=== PATIENT | female | born 1975 | race Caucasian/White ===

== ENCOUNTER 2018-08-06 02:44 | Emergency (ER) | payer SELFPAY ==
[2018-08-06] MEDS ORDERED: IOVERSOL 320 100 ML VIAL IVP ONE ×3 (02:45→05:50)
--- NOTE | 2018-08-06 03:22 | ED Physician Documentation ---
PD HPI NVD - Stated complaint Stated Complaint: VOMITING/CONSTIPATION - Chief complaint Chief Complaint: Abd Pain - History obtained from History obtained from: Patient - History of Present Illness Timing - onset: How many days ago (3) Timing - duration: Days (3) Timing - details: Abrupt onset (onset of abd distension, nausea/ vomiting, and feeling of constipation with rectal fullness. No BM for 3 days as well.), Still present Associated symptoms: Abdominal pain (diffuse and feeling distended.). No: Fever, Chest pain, Hematemesis, Melena, Near syncope / syncope, Loss of appetite Contributing factors: Other (crohns disease). No: Sick contact, Bad food Improved by: Position Worsened by: Position, Palpation Similar symptoms before: Diagnosis (crohns disease with inflammation) Recently seen: Not recently seen (She states [place]. She was working off prior prescription but had not seen a primary care since April. She still has her usual pain medicines at home from the pain clinic and will be seeing a different pain clinic next month. She has not seen her manager rehab Dr. Smith in [place] for 3 years.) Review of Systems Constitutional: reports: Myalgias, Fatigue. denies: Fever, Chills Nose: denies: Rhinorrhea / runny nose, Congestion Throat: denies: Sore throat Respiratory: denies: Cough GI: reports: Abdominal Pain, Nausea, Vomiting, Constipation. 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: None : None HEENT: None Psych: None Musculoskeletal: None Derm: None - Past Surgical History Past Surgical History: Yes General: Bowel surgery, Hiatal hernia repair - Present Medications Home Medications: Ambulatory Orders Medication Instructions Recorded Confirmed Docusate Sodium 100 mg PO DAILY #30 capsule 08/06/18 Hydrocortisone Acetate [Anucort-Hc] 25 mg RC DAILY #5 supp.rect 08/06/18 Promethazine [Phenergan] 25 mg PO Q6H PRN #20 tab 08/06/18 dexAMETHasone [Decadron] 4 mg PO DAILY #5 tablet 08/06/18 - Allergies Allergies/Adverse Reactions: Allergies Allergy/AdvReac Type Severity Reaction Status Date / Time acetaminophen [From Vicodin] Allergy Rash Verified 08/06/18 02:52 codeine Allergy Rash Verified 08/06/18 02:52 hydrocodone [From Vicodin] Allergy Rash Verified 08/06/18 02:52 Penicillins Allergy Rash Verified 08/06/18 02:52 - Social History Does the pt smoke?: Yes Smoking Status: Light tobacco smoker Does the pt drink ETOH?: No Does the pt have substance abuse?: No Substance Use and Type: Prescription Pills - Immunizations Immunizations are current?: Yes - POLST Patient has POLST: No PD ED PE NORMAL - Vitals Vital signs reviewed: Yes - General General: Alert and oriented X 3, Well developed/nourished, Other (appears in pain) - HEENT HEENT: Pharynx benign - Neck Neck: Supple, no meningeal sign, No adenopathy - Cardiac Cardiac: RRR, No murmur - Respiratory Respiratory: Clear bilaterally - Abdomen Abdomen: Soft, No organomegaly, Other (distended with increased bowel sounds, and general tenderness. ) - Rectal Rectal: Deferred - Back Back: No CVA TTP - Derm Derm: Normal color, No rash Results - Vitals Vitals: Vital Signs - 24 hr 08/06/18 08/06/18 08/06/18 02:47 04:42 06:20 Temperature 37.2 C 36.8 C 36.8 C Heart Rate 111 H 84 88 Respiratory 18 16 16 Rate Blood Pressure 163/95 H 159/102 H 155/97 H O2 Saturation 98 98 98 Oxygen O2 Source Room air - Labs Labs: Laboratory Tests 08/06/18 08/06/18 08/06/18 04:50 04:50 04:50 WBC 8.2 RBC 4.36 Hgb 12.3 Hct 36.1 L MCV 82.8 MCH 28.1 MCHC 33.9 RDW 13.9 Plt Count 278 MPV 8.2 Neut # (Auto) 5.0 Lymph # (Auto) 2.2 [place] # (Auto) 0.6 Eos # (Auto) 0.2 Baso # (Auto) 0.1 Absolute Nucleated RBC 0.00 Nucleated RBC % 0.0 ESR 7 Sodium 137 Potassium 3.1 L Chloride 102 Carbon Dioxide 25 Anion Gap 10.0 BUN 14 Creatinine 0.6 Estimated GFR (MDRD) 110 Glucose 115 H Calcium 8.4 L Magnesium 1.8 Total Bilirubin 0.5 AST 16 ALT 12 Alkaline Phosphatase 57 Total Protein 6.5 L Albumin 3.3 Globulin 3.2 Albumin/Globulin Ratio 1.0 Lipase 30 - Rads (name of study) abd/pelvic CT Radiology: Prelim report reviewed (10 cm pelvic mass pedunculated from uterus c/w leiomyoma (fibroid). No obstruction. ), See rad report PD MEDICAL DECISION MAKING - ED course Complexity details: reviewed results (no obstruction, no perforations. Large pelvic mass c/w fibroid it may be blocking stool output and causing some of the distension. ), re-evaluated patient, considered differential (consider constipation with distension, Crohns flare with pseudo obstruction, true obstruction or adhesions, among other diagnoses. ), d/w patient Departure - Departure Condition: Stable Record reviewed to determine appropriate education?: Yes Instructions: Abdominal Pain Follow-Up: [facility] [Provider Group] Palomo Smith MD [Physician No Access] - Prescriptions: dexAMETHasone [Decadron] 4 mg PO DAILY #5 tablet Docusate Sodium 100 mg PO DAILY #30 capsule Hydrocortisone Acetate [Anucort-Hc] 25 mg RC DAILY #5 supp.rect Promethazine [Phenergan] 25 mg PO Q6H PRN #20 tab PRN Reason: Nausea / Vomiting Comments: It does sound likely you have a flareup of your Crohn's and so use the Decadron oral steroid for the next 10 days. You can use the steroid suppository daily for 5 days to decrease inflammation at the rectum. Use a daily stool softener and stay well-hydrated. Continue usual pain medicines at home. Add promethazine for nausea as needed. Follow-up with your manager rehab in [place], call Tuesday for an appointment to follow-up on the current symptoms. The CT scan showed a large fibroid about the size of a softball and that may be contributing to some pressure within the pelvis and even impeding some of the stool. Follow-up with the gynecology office regarding what to do about this. Follow-up with the pain clinic as planned for ongoing treatment of your chronic pains.
[2018-08-06] MEDS ORDERED: SODIUM CHLORIDE 0.9% 1,000 ML IV ONE (04:02)
[2018-08-06] MEDS ORDERED: HYDROmorphone 1 MG/ML CARPUJECT IVP STA ×2 (04:02→05:56)
[2018-08-06] MEDS ORDERED: KETOROLAC 15 MG/ML VIAL IVP STA (04:02)
[2018-08-06] MEDS ORDERED: DEXAMETHASONE 10 MG/ML VIAL IVP STA (04:02)
[2018-08-06] MEDS ORDERED: ONDANSETRON 4 MG/2 ML VIAL IVP STA (04:02)
[2018-08-06 04:58] LABS: BASOPHILS # (AUTO) 0.1 10^3/uL (0.0-0.1); BASOPHILS % (AUTO) 0.9 %; EOSINOPHILS # (AUTO) 0.2 10^3/uL (0.0-0.7); EOSINOPHILS % (AUTO) 2.8 %; HGB - HEMOGLOBIN 12.3 g/dL (12.0-16.0); LYMPHOCYTES # (AUTO) 2.2 10^3/uL (1.5-3.5); LYMPHOCYTES % (AUTO) 26.9 %; MEAN CORPUSCULAR HEMOGLOBIN 28.1 pg (27.0-31.0); MEAN CORPUSCULAR HGB CONC 33.9 g/dL (32.0-36.0); MEAN CORPUSCULAR VOLUME 82.8 fL (81.0-99.0); MEAN PLATELET VOLUME 8.2 fL (7.9-10.8); MONOCYTES # (AUTO) 0.6 10^3/uL (0.0-1.0); MONOCYTES % (AUTO) 7.9 %; NEUTROPHILS % (AUTO) 61.5 %; PLT - PLATELET COUNT 278 10^3/uL (130-450); RED BLOOD COUNT 4.36 10^6/uL (4.20-5.40); RED CELL DISTRIBUTION WIDTH 13.9 % (12.0-15.0); WHITE BLOOD COUNT 8.2 x10^3/uL (4.8-10.8)
[2018-08-06 05:09] LABS: ALBUMIN 3.3 g/dL (3.2-5.5); BILIRUBIN,TOTAL 0.5 mg/dL (0.2-1.0); CALCIUM 8.4 mg/dL (8.5-10.3); CREATININE 0.6 mg/dL (0.4-1.0); MAGNESIUM 1.8 mg/dL (1.7-2.8); TOTAL PROTEIN 6.5 g/dL (6.7-8.2)
--- NOTE | 2018-08-06 06:00 | CT Report ---
Reason: abd distension and vomiting; Crohns. Procedure Date: 08/06/2018 Accession Number: [id number] / [id number] Procedure: CT - Abdomen/Pelvis W CPT Code: FULL RESULT: EXAM: CT ABDOMEN AND PELVIS EXAM DATE: 08/06/2018 05:34 AM. CLINICAL HISTORY: Abd distension and vomiting; Crohns. COMPARISONS: None. TECHNIQUE: Routine helical CT imaging was performed through the abdomen and pelvis. IV contrast: 85 ML OPTIRAY 320. Enteric contrast: No. Reconstructions: Coronal and sagittal. In accordance with CT protocol optimization, one or more of the following dose reduction techniques were utilized for this exam: automated exposure control, adjustment of mA and/or KV based on patient size, or use of iterative reconstructive technique. FINDINGS: Lung Bases: Unremarkable. Liver: Normal. No masses. Gallbladder/Bile Ducts: Unremarkable. Spleen: Normal. Pancreas: Normal. Adrenal Glands: Normal. Kidneys: Normal. No masses or hydronephrosis. Peritoneal Cavity/Bowel: Normal. No free fluid, free air or adenopathy. No masses or acute inflammatory process. Surgical clips adjacent to the cecum, likely from previous appendectomy. Pelvic Organs: 10.4 x 9 x 8 cm mass in the anterior pelvis, which appears to arise from the anterior uterus, likely representing a pedunculated subserosal leiomyoma. Vasculature: No aneurysms or other significant abnormality. Bones: No significant abnormality. Other: None. IMPRESSION: New large anterior midline pelvic mass, likely representing a pedunculated subserosal leiomyoma. No other evident etiology for patient's distention and nausea. RADIA
[2018-08-06 06:34] VITALS: BP 155/97
== END 2018-08-06 07:05 | disposition home or self-care (01) ==
LOC: ED 02:44
DX: K50.90 Crohn's disease, unspecified, without complications (principal); D25.9 Leiomyoma of uterus, unspecified; F17.200 Nicotine dependence, unspecified, uncomplicated
CPT/HCPCS: 36415; 74177; 80053; 83690; 83735; 85025; 85651; 96361; 96374; 96375; 96376; 99284; J1170; Q9967; 99283

== ENCOUNTER 2018-08-06 13:51 | Outpatient (CLI) | payer SELFPAY | END 2018-08-06 13:52 | disposition critical access hospital (66) | LOC: EMS 13:51 | PROVIDERS: ATTEND Surgery | DX: R10.9 Unspecified abdominal pain (principal); R11.0 Nausea | CPT/HCPCS: A0425; A0427 ==

== ENCOUNTER 2018-08-06 14:29 | Emergency (ER) | payer SELFPAY ==
[2018-08-06] MEDS ORDERED: ONDANSETRON 4 MG/2 ML VIAL IVP STA (15:36)
[2018-08-06] MEDS ORDERED: HYDROmorphone 1 MG/ML CARPUJECT IVP STA (15:36)
--- NOTE | 2018-08-06 16:01 | ED Physician Documentation ---
PD HPI ABD PAIN - Stated complaint Stated Complaint: ABD PX - Chief complaint Chief Complaint: Abd Pain - History obtained from History obtained from: Patient - History of Present Illness Timing - onset: How many days ago (several) Timing - duration: Days (several) Timing - details: Gradual onset Pain level max: 8 Pain level now: 8 Quality: Aching, Pain Location: All over / everywhere Radiation: No: Chest, , Lower back, Left flank, Left shoulder, Right flank, Right shoulder, Upper back Improved by: Other (nothing) Worsened by: Moving, Palpation Associated symptoms: Nausea, Vomiting, Constipation. 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 : None HEENT: None Psych: None Musculoskeletal: None Derm: None - Past Surgical History Past Surgical History: Yes General: Bowel surgery, Hiatal hernia repair - Present Medications Home Medications: Ambulatory Orders Medication Instructions Recorded Confirmed Docusate Sodium 100 mg PO DAILY #30 capsule 08/06/18 HYDROmorphone [Dilaudid] 2 - 4 mg PO Q6H PRN #20 tablet 08/06/18 Hydrocortisone Acetate [Anucort-Hc] 25 mg RC DAILY #5 supp.rect 08/06/18 Ondansetron Odt [Zofran] 4 mg TL Q6H PRN #20 tablet 08/06/18 Promethazine [Phenergan] 25 mg PO Q6H PRN #20 tab 08/06/18 dexAMETHasone [Decadron] 4 mg PO DAILY #5 tablet 08/06/18 - Allergies Allergies/Adverse Reactions: Allergies Allergy/AdvReac Type Severity Reaction Status Date / Time acetaminophen [From Vicodin] Allergy Rash Verified 08/06/18 02:52 codeine Allergy Rash Verified 08/06/18 02:52 hydrocodone [From Vicodin] Allergy Rash Verified 08/06/18 02:52 Penicillins Allergy Rash Verified 08/06/18 02:52 - Social History Does the pt smoke?: Yes Smoking Status: Current every day smoker Does the pt drink ETOH?: No Does the pt have substance abuse?: No - Immunizations Immunizations are current?: Yes - POLST Patient has POLST: No PD ED PE NORMAL - Vitals Vital signs reviewed: Yes - General General: Alert and oriented X 3, No acute distress, Well developed/nourished - HEENT HEENT: PERRL, Moist mucous membranes - Neck Neck: Supple, no meningeal sign - Cardiac Cardiac: RRR, Strong equal pulses - Respiratory Respiratory: No respiratory distress, Clear bilaterally - Abdomen Abdomen: Soft, Non tender, Non distended - Derm Derm: Warm and dry, No rash - Extremities Extremities: No calf tenderness / cord - Neuro Neuro: Alert and oriented X 3 - Psych Psych: Normal mood, Normal affect Results - Vitals Vitals: Vital Signs - 24 hr 08/06/18 08/06/18 08/06/18 14:33 15:48 17:37 Temperature 37.0 C Heart Rate 95 84 86 Respiratory 16 16 16 Rate Blood Pressure 149/102 H 146/81 H 138/78 H O2 Saturation 99 98 99 Oxygen O2 Source Room air PD MEDICAL DECISION MAKING - ED course Complexity details: reviewed old records, reviewed results, re-evaluated patient, considered differential, d/w patient, d/w family ED course: 42-year-old female with a history of Crohn's disease, being treated for Crohn's exacerbation this morning. She went home and had continued vomiting. States that Zofran works better for her. She was given Zofran in the emergency department. Tolerating p.o. without difficulty. Also given hydromorphone and Toradol. Pain well controlled. Will prescribe a small amount of hydromorphone for her for home. PDMP was reviewed. No recent prescriptions. She is on methadone at home as well. Patient counseled regarding signs and symptoms for which I believe and urgent re-evaluation would be necessary. Patient with good understanding of and agreement to plan and is comfortable going home at this time This document was made in part using voice recognition software. While efforts are made to proofread this document, sound alike and grammatical errors may occur. Departure - Departure Disposition: 01 Home, Self Care Clinical Impression: Exacerbation of Crohn's disease Qualifiers: Digestive disease complication type: without complication Qualified Code(s): K50.90 - Crohn's disease, unspecified, without complications Nausea & vomiting Qualifiers: Vomiting type: unspecified Vomiting Intractability: non-intractable Qualified Code(s): R11.2 - Nausea with vomiting, unspecified Fibroid uterus Qualifiers: Uterine leiomyoma location: unspecified location Qualified Code(s): D25.9 - Leiomyoma of uterus, unspecified Condition: Good Instructions: ED Abdominal Pain Unkn Cause Follow-Up: your,doctor in 1 week [Other] Prescriptions: HYDROmorphone [Dilaudid] 2 - 4 mg PO Q6H PRN #20 tablet PRN Reason: Abdominal Pain Ondansetron Odt [Zofran] 4 mg TL Q6H PRN #20 tablet PRN Reason: Nausea / Vomiting Comments: Take the medications as prescribed. Follow-up with your doctor for further care. You need to have the uterine growth that is likely a fibroid further assessed with your doctor. You may also want to discuss with your gastro enterologist restarting on Crohn's medication and/or a stricturoplasty for your strictures if they are amenable to this. Do not drink alcohol or drive while on narcotic pain medicine. Note that many narcotic pain relievers also contain tylenol/acetaminophen. Please ensure that your total dose of acetaminophen from all sources does not exceed 3 grams (3000mg) per day. You may constipated on this medication, take a stool softener such as "Colace" twice a day while you are on it. Also recommend a [id number] laxative such as senna or MiraLAX any day that you do not have a bowel movement. If you received narcotic pain medication in the emergency department, do not drive or operate machinery for the next 24 hours. Discharge Date/Time: 08/06/18 17:38
[2018-08-06] MEDS ORDERED: KETOROLAC 30 MG/ML VIAL IVP STA (16:32)
[2018-08-06] MEDS ORDERED: HYDROmorphone 2 MG TABLET PO STA (16:33)
[2018-08-06] MEDS ORDERED: ONDANSETRON ODT 4 MG Prepack 2 TL PRN (17:23)
[2018-08-06 17:38] VITALS: BP 138/78
== END 2018-08-06 17:38 | disposition home or self-care (01) ==
LOC: EDUNIT# → ED 14:29
DX: K50.90 Crohn's disease, unspecified, without complications (principal); D25.9 Leiomyoma of uterus, unspecified; F17.200 Nicotine dependence, unspecified, uncomplicated
CPT/HCPCS: 96374; 96375; 99283; A9270; J1170; 96361; 96376; 99284

== ENCOUNTER 2018-08-09 00:48 | Outpatient (CLI) | payer SELFPAY | END 2018-08-09 00:49 | disposition critical access hospital (66) | LOC: EMS 00:48 | PROVIDERS: ATTEND Surgery | DX: R10.9 Unspecified abdominal pain (principal); R11.2 Nausea with vomiting, unspecified; R19.7 Diarrhea, unspecified | CPT/HCPCS: A0425; A0429 ==

== ENCOUNTER 2018-08-09 01:21 | Emergency (ER) | payer SELFPAY ==
--- NOTE | 2018-08-09 01:23 | ED Physician Documentation ---
PD HPI ABD PAIN - Stated complaint Stated Complaint: ABD PAIN - History obtained from History obtained from: Patient, EMS - History of Present Illness Timing - onset: How many weeks ago (1) Timing - duration: Weeks (1) Timing - details: Gradual onset (had symptoms c/w Crohns flare but with distension and no BM several days ago. Seen here and had CT showing no obstruction. Has uterine mass. Made calls for appts 2 days ago with SALVAGE DETERMINER, and her GI. No appts yet, awaiting return calls. Having diarrheal movements the past 2 days, with mucous. Had increased pain overnight despite PO Dilaudid and Zofran.), Still present Quality: Cramping, Aching Location: Periumbilical, RLQ Radiation: No: Chest Associated symptoms: Nausea, Vomiting, Diarrhea. No: Fever, Constipation, Melena Similar symptoms before: Diagnosis (Crohns) Recently seen: Emergency Dept (3 days ago for similar) Review of Systems Constitutional: denies: Fever, Chills Nose: denies: Rhinorrhea / runny nose, Congestion Throat: denies: Sore throat Respiratory: denies: Cough GI: reports: Diarrhea. 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 : None HEENT: None Psych: None Musculoskeletal: None Derm: None - Past Surgical History Past Surgical History: Yes General: Bowel surgery, Hiatal hernia repair - Present Medications Home Medications: Ambulatory Orders Medication Instructions Recorded Confirmed Docusate Sodium 100 mg PO DAILY #30 capsule 08/06/18 Hydrocortisone Acetate [Anucort-Hc] 25 mg RC DAILY #5 supp.rect 08/06/18 Ondansetron Odt [Zofran] 4 mg TL Q6H PRN #20 tablet 08/06/18 Promethazine [Phenergan] 25 mg PO Q6H PRN #20 tab 08/06/18 dexAMETHasone [Decadron] 4 mg PO DAILY #5 tablet 08/06/18 HYDROmorphone [Dilaudid] 2 - 4 mg PO Q6H PRN #20 tablet 08/09/18 dexAMETHasone [Decadron] 4 mg PO DAILY #5 tablet 08/09/18 - Allergies Allergies/Adverse Reactions: Allergies Allergy/AdvReac Type Severity Reaction Status Date / Time acetaminophen [From Vicodin] Allergy Rash Verified 08/09/18 01:34 codeine Allergy Rash Verified 08/09/18 01:34 hydrocodone [From Vicodin] Allergy Rash Verified 08/09/18 01:34 Penicillins Allergy Rash Verified 08/09/18 01:34 - Social History Does the pt smoke?: Yes Smoking Status: Current every day smoker Does the pt drink ETOH?: No Does the pt have substance abuse?: No - Immunizations Immunizations are current?: Yes - POLST Patient has POLST: No PD ED PE NORMAL - Vitals Vital signs reviewed: Yes - General General: Alert and oriented X 3, No acute distress, Well developed/nourished - HEENT HEENT: Pharynx benign - Neck Neck: Supple, no meningeal sign, No adenopathy - Cardiac Cardiac: RRR, No murmur - Respiratory Respiratory: Clear bilaterally - Abdomen Abdomen: Normal bowel sounds, Soft, No organomegaly, Other (tender mid abdomen, with moderate distension but not tense. Bowel sounds diminished. No percussion tenderness. ) - Rectal Rectal: Deferred - Back Back: No CVA TTP - Derm Derm: Normal color, Warm and dry - Neuro Neuro: Alert and oriented X 3, No motor deficit, Normal speech Results - Vitals Vitals: Vital Signs - 24 hr 08/09/18 08/09/18 08/09/18 01:20 01:26 03:16 Temperature 36.7 C Heart Rate 85 86 81 Respiratory 15 15 16 Rate Blood Pressure 131/75 H 131/75 H 108/86 H O2 Saturation 99 100 98 08/09/18 08/09/18 05:00 05:49 Temperature Heart Rate 78 75 Respiratory 16 16 Rate Blood Pressure 136/84 H 128/77 O2 Saturation 99 100 Oxygen O2 Source Room air - Labs Labs: Laboratory Tests 08/09/18 08/09/18 08/09/18 02:00 02:00 02:00 WBC 11.8 H RBC 4.52 Hgb 12.3 Hct 37.3 MCV 82.7 MCH 27.3 MCHC 33.0 RDW 13.8 Plt Count 297 MPV 7.7 L Neut # (Auto) 6.1 Lymph # (Auto) 4.3 H Powell # (Auto) 0.9 Eos # (Auto) 0.3 Baso # (Auto) 0.1 Absolute Nucleated RBC 0.00 Nucleated RBC % 0.0 ESR 5 Sodium 139 Potassium 3.4 L Chloride 100 L Carbon Dioxide 28 Anion Gap 11.0 BUN 20 Creatinine 0.7 Estimated GFR (MDRD) 92 Glucose 112 H Calcium 8.9 Magnesium 1.7 Total Bilirubin 0.5 AST 14 ALT 13 Alkaline Phosphatase 53 Total Protein 6.3 L Albumin 3.4 Globulin 2.9 Albumin/Globulin Ratio 1.2 Lipase 34 PD MEDICAL DECISION MAKING - ED course Complexity details: re-evaluated patient (improved with IM meds. Labs good. I did not see rationale for repeating CT and patient is good with not getting imaging. ), considered differential, d/w patient Departure - Departure Disposition: 01 Home, Self Care Clinical Impression: Exacerbation of Crohn's disease Qualifiers: Digestive disease complication type: without complication Qualified Code(s): K50.90 - Crohn's disease, unspecified, without complications Nausea & vomiting Qualifiers: Vomiting type: unspecified Vomiting Intractability: non-intractable Qualified Code(s): R11.2 - Nausea with vomiting, unspecified Fibroid uterus Qualifiers: Uterine leiomyoma location: unspecified location Qualified Code(s): D25.9 - Leiomyoma of uterus, unspecified Condition: Stable Record reviewed to determine appropriate education?: Yes Instructions: ED Inflam Bowel Disease Crohn Prescriptions: dexAMETHasone [Decadron] 4 mg PO DAILY #5 tablet HYDROmorphone [Dilaudid] 2 - 4 mg PO Q6H PRN #20 tablet PRN Reason: Abdominal Pain Comments: Stay well-hydrated. Continue your ondansetron at home 1 to 2 tablets every 6 hours if needed for nausea and vomiting. Continue with your dexamethasone daily and I would extend it out another 5 days beyond the current prescription, hopef ully until you can follow-up with your primary care or GI. Continue your current medications and add the hydromorphone as needed. 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 Discharge Date/Time: 08/09/18 06:09
[2018-08-09] MEDS ORDERED: FAMOTIDINE 20 MG/2 ML VIAL IVP STA (01:48)
[2018-08-09] MEDS ORDERED: ONDANSETRON 4 MG/2 ML VIAL IVP STA (01:48)
[2018-08-09] MEDS ORDERED: HYDROmorphone 2 MG/ML VIAL IVP STA (01:48)
[2018-08-09] MEDS ORDERED: SODIUM CHLORIDE 0.9% 1,000 ML IV ONE (01:48)
[2018-08-09 02:13] LABS: BASOPHILS # (AUTO) 0.1 10^3/uL (0.0-0.1); BASOPHILS % (AUTO) 0.8 %; EOSINOPHILS # (AUTO) 0.3 10^3/uL (0.0-0.7); EOSINOPHILS % (AUTO) 2.5 %; HGB - HEMOGLOBIN 12.3 g/dL (12.0-16.0); LYMPHOCYTES # (AUTO) 4.3 10^3/uL (1.5-3.5); LYMPHOCYTES % (AUTO) 36.7 %; MEAN CORPUSCULAR HEMOGLOBIN 27.3 pg (27.0-31.0); MEAN CORPUSCULAR VOLUME 82.7 fL (81.0-99.0); MEAN PLATELET VOLUME 7.7 fL (7.9-10.8); MONOCYTES # (AUTO) 0.9 10^3/uL (0.0-1.0); MONOCYTES % (AUTO) 7.9 %; NEUTROPHILS # (AUTO) 6.1 10^3/uL (1.5-6.6); NEUTROPHILS % (AUTO) 52.1 %; PLT - PLATELET COUNT 297 10^3/uL (130-450); RED BLOOD COUNT 4.52 10^6/uL (4.20-5.40); RED CELL DISTRIBUTION WIDTH 13.8 % (12.0-15.0); WHITE BLOOD COUNT 11.8 x10^3/uL (4.8-10.8)
[2018-08-09 02:24] LABS: ALBUMIN 3.4 g/dL (3.2-5.5); ALBUMIN/GLOBULIN RATIO 1.2 (1.0-2.2); BILIRUBIN,TOTAL 0.5 mg/dL (0.2-1.0); CALCIUM 8.9 mg/dL (8.5-10.3); CREATININE 0.7 mg/dL (0.4-1.0); MAGNESIUM 1.7 mg/dL (1.7-2.8); TOTAL PROTEIN 6.3 g/dL (6.7-8.2)
[2018-08-09] MEDS ORDERED: DIPHENOX/ATROPINE 2.5/0.025 MG TABLET PO STA (05:36)
[2018-08-09 05:51] VITALS: BP 128/77
== END 2018-08-09 06:09 | disposition home or self-care (01) ==
LOC: EDUNIT# → ED 01:21
DX: K50.90 Crohn's disease, unspecified, without complications (principal); R11.2 Nausea with vomiting, unspecified; D25.9 Leiomyoma of uterus, unspecified; F17.200 Nicotine dependence, unspecified, uncomplicated
CPT/HCPCS: 36415; 80053; 83690; 83735; 85025; 85651; 96374; 99283; 99284; A9270; J1170

== ENCOUNTER 2018-10-05 00:02 | Outpatient (CLI) | payer SELFPAY | END 2018-10-05 00:03 | disposition critical access hospital (66) | LOC: EMS 00:02 | PROVIDERS: ATTEND Surgery | DX: R00.0 Tachycardia, unspecified (principal); R11.0 Nausea | CPT/HCPCS: A0425; A0429 ==

== ENCOUNTER 2018-10-05 00:57 | Emergency (ER) | payer SELFPAY ==
--- NOTE | 2018-10-05 01:42 | ED Physician Documentation ---
PD HPI NVD - Stated complaint Stated Complaint: ABD PAIN - Chief complaint Chief Complaint: Abd Pain - History obtained from History obtained from: Patient - History of Present Illness Timing - onset: How many days ago (3) Timing - duration: Days (3) Timing - details: Gradual onset, Still present Associated symptoms: Abdominal pain Contributing factors: Other (narcotic withdrawal) Improved by: Meds Similar symptoms before: Diagnosis (chrons disease and narcotic withdrawal) Recently seen: Emergency Dept (2 months ago.) - Additonal information Additional information: 43-year-old female with a history of inflammatory scarring Crohn's disease has been on methadone for years and her prescriber has gone missing in action and she has not been able to secure a new prescriber. She has run out of methadone about 3 days ago and she has now developed nausea vomiting and diarrhea with abdominal pain similar to what she has when she has a flare of her Crohn's disease. 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 : None HEENT: None Psych: None Musculoskeletal: None Derm: None Other Past Medical History: PCOS, cervical cancer, - Past Surgical History Past Surgical History: Yes General: Appendectomy, Bowel surgery, Hiatal hernia repair - Present Medications Home Medications: Ambulatory Orders Medication Instructions Recorded Confirmed Docusate Sodium 100 mg PO DAILY #30 capsule 08/06/18 Hydrocortisone Acetate [Anucort-Hc] 25 mg RC DAILY #5 supp.rect 08/06/18 Ondansetron Odt [Zofran] 4 mg TL Q6H PRN #20 tablet 08/06/18 Promethazine [Phenergan] 25 mg PO Q6H PRN #20 tab 08/06/18 dexAMETHasone [Decadron] 4 mg PO DAILY #5 tablet 08/06/18 HYDROmorphone [Dilaudid] 2 - 4 mg PO Q6H PRN #20 tablet 08/09/18 dexAMETHasone [Decadron] 4 mg PO DAILY #5 tablet 08/09/18 oxyCODONE [Roxicodone] 10 mg PO Q6H PRN #30 tablet 10/05/18 - Allergies Allergies/Adverse Reactions: Allergies Allergy/AdvReac Type Severity Reaction Status Date / Time acetaminophen [From Vicodin] Allergy Rash Verified 08/09/18 01:34 codeine Allergy Rash Verified 08/09/18 01:34 hydrocodone [From Vicodin] Allergy Rash Verified 08/09/18 01:34 Penicillins Allergy Rash Verified 08/09/18 01:34 - Social History Does the pt smoke?: Yes Smoking Status: Current every day smoker Does the pt drink ETOH?: No Does the pt have substance abuse?: No Substance Use and Type: Marijuana - Immunizations Immunizations are current?: Yes - POLST Patient has POLST: No PD ED PE NORMAL - Vitals Vital signs reviewed: Yes (hypertensive ) - General General: Alert and oriented X 3, Well developed/nourished, Other (appears in pain and worn out) - HEENT HEENT: Atraumatic, PERRL, EOMI - Neck Neck: Supple, no meningeal sign, No bony TTP - Cardiac Cardiac: RRR, No murmur - Respiratory Respiratory: No respiratory distress, Clear bilaterally - Abdomen Abdomen: Soft, Other (mild suprapubic tenderness bilat worse on the right. ) - Back Back: No CVA TTP, No spinal TTP - Derm Derm: Normal color, Warm and dry, No rash - Extremities Extremities: No deformity, No edema, No calf tenderness / cord - Neuro Neuro: Alert and oriented X 3, probation and patrol agent 2-12 intact, No motor deficit, No sensory deficit, Normal speech Eye Opening: Spontaneous Motor: Obeys Commands Verbal: Oriented GCS Score: 15 - Psych Psych: Normal mood, Normal affect Results - Vitals Vitals: Vital Signs - 24 hr 10/05/18 01:00 Temperature 37.2 C Heart Rate 96 Respiratory 20 Rate Blood Pressure 151/92 H O2 Saturation 100 Oxygen O2 Source Room air - Labs Labs: Laboratory Tests 10/05/18 10/05/18 02:35 02:35 WBC 10.5 RBC 5.12 Hgb 13.6 Hct 41.8 MCV 81.6 MCH 26.6 L MCHC 32.5 RDW 13.4 Plt Count 329 MPV 10.2 Neut # (Auto) 6.4 Lymph # (Auto) 2.9 [place] # (Auto) 0.9 Eos # (Auto) 0.1 Baso # (Auto) 0.1 Absolute Nucleated RBC 0.00 Nucleated RBC % 0.0 Sodium 144 Potassium 3.4 L Chloride 106 Carbon Dioxide 27 Anion Gap 11.0 BUN 9 Creatinine 0.7 Estimated GFR (MDRD) 91 Glucose 94 Calcium 9.7 Total Bilirubin 0.6 AST 47 H ALT 26 Alkaline Phosphatase 65 Total Protein 7.8 Albumin 4.2 Globulin 3.6 Albumin/Globulin Ratio 1.2 Lipase 20 L Procedures - IVC sono (time) 0200 Bedside IVC sono: IVC measures (cm) (1.2), Dehydration (est 1 liter deficit) PD MEDICAL DECISION MAKING - ED course Complexity details: reviewed old records, reviewed results, re-evaluated patient, considered differential, d/w patient ED course: 43-year-old Female with history of Crohn's disease and chronic pain who is on pain management has lost her prescriber and she has not been able to secure a new prescriber. She is now in the early stages of withdrawal from methadone and here in the emergency department she is given a liter of saline some Zofran and some Dilaudid as well as 20 mEq of potassium chloride and 20 mg of methadone orally. We will provide her with a short course of oxycodone there will likely be inadequate for complete coverage. She will need to find her prescriber today. Departure - Departure Disposition: 01 Home, Self Care Clinical Impression: Narcotic withdrawal Condition: Stable Instructions: ED Withdrawal Narcotic Follow-Up: [facility] [Provider Group] Prescriptions: oxyCODONE [Roxicodone] 10 mg PO Q6H PRN #30 tablet PRN Reason: Pain Comments: You will need to find a prescriber today
[2018-10-05] MEDS ORDERED: ONDANSETRON 4 MG/2 ML VIAL IVP STA (02:06)
[2018-10-05] MEDS ORDERED: SODIUM CHLORIDE 0.9% 1,000 ML IV ONE (02:06)
[2018-10-05] MEDS ORDERED: HYDROmorphone 1 MG/ML CARPUJECT IVP STA (02:06)
[2018-10-05 02:45] LABS: BASOPHILS # (AUTO) 0.1 10^3/uL (0.0-0.1); BASOPHILS % (AUTO) 0.8 %; EOSINOPHILS # (AUTO) 0.1 10^3/uL (0.0-0.7); HGB - HEMOGLOBIN 13.6 g/dL (12.0-16.0); LYMPHOCYTES # (AUTO) 2.9 10^3/uL (1.5-3.5); LYMPHOCYTES % (AUTO) 28.1 %; MEAN CORPUSCULAR HEMOGLOBIN 26.6 pg (27.0-31.0); MEAN CORPUSCULAR HGB CONC 32.5 g/dL (32.0-36.0); MEAN CORPUSCULAR VOLUME 81.6 fL (81.0-99.0); MEAN PLATELET VOLUME 10.2 fL (7.9-10.8); MONOCYTES # (AUTO) 0.9 10^3/uL (0.0-1.0); MONOCYTES % (AUTO) 8.5 %; NEUTROPHILS # (AUTO) 6.4 10^3/uL (1.5-6.6); NEUTROPHILS % (AUTO) 61.3 %; PLT - PLATELET COUNT 329 10^3/uL (130-450); RED BLOOD COUNT 5.12 10^6/uL (4.20-5.40); RED CELL DISTRIBUTION WIDTH 13.4 % (12.0-15.0); WHITE BLOOD COUNT 10.5 x10^3/uL (4.8-10.8)
[2018-10-05 02:57] LABS: ALBUMIN 4.2 g/dL (3.2-5.5); ALBUMIN/GLOBULIN RATIO 1.2 (1.0-2.2); BILIRUBIN,TOTAL 0.6 mg/dL (0.2-1.0); CALCIUM 9.7 mg/dL (8.5-10.3); CREATININE 0.7 mg/dL (0.4-1.0); TOTAL PROTEIN 7.8 g/dL (6.7-8.2)
[2018-10-05] MEDS ORDERED: METHADONE 5 MG TABLET PO STA (02:58)
[2018-10-05] MEDS ORDERED: POTASSIUM CHLORIDE 20 MEQ TABLET PO STA (03:01)
[2018-10-05 03:14] VITALS: BP 158/88
== END 2018-10-05 03:16 | disposition home or self-care (01) ==
LOC: EDUNIT# → ED 00:57
DX: F11.23 Opioid dependence with withdrawal (principal); T40.2X6A Underdosing of other opioids, initial encounter; Z91.138 Patient's unintentional underdosing of medication regimen for other reason; K50.90 Crohn's disease, unspecified, without complications; E86.0 Dehydration; F17.200 Nicotine dependence, unspecified, uncomplicated
CPT/HCPCS: 36415; 80053; 83690; 85025; 96374; 99283; 99284; A9270; J1170

== ENCOUNTER 2021-03-05 06:40 | Emergency (ER) | payer SELFPAY ==
[2021-03-05] MEDS ORDERED: KETOROLAC 15 MG/ML VIAL IVP STA (06:43)
[2021-03-05] MEDS ORDERED: ONDANSETRON 4 MG/2 ML VIAL IVP STA (06:43)
[2021-03-05] MEDS ORDERED: SODIUM CHLORIDE 0.9% 1,000 ML IV STA ×2 (06:43→09:36)
[2021-03-05 07:30] LABS: BASOPHILS # (AUTO) 0.1 10^3/uL (0.0-0.1); BASOPHILS % (AUTO) 0.8 %; EOSINOPHILS # (AUTO) 0.1 10^3/uL (0.0-0.7); HGB - HEMOGLOBIN 13.9 g/dL (12.0-16.0); LYMPHOCYTES # (AUTO) 1.7 10^3/uL (1.5-3.5); LYMPHOCYTES % (AUTO) 14.5 %; MEAN CORPUSCULAR HEMOGLOBIN 28.1 pg (27.0-31.0); MEAN CORPUSCULAR HGB CONC 33.1 g/dL (32.0-36.0); MEAN CORPUSCULAR VOLUME 84.8 fL (81.0-99.0); MEAN PLATELET VOLUME 9.5 fL (7.9-10.8); MONOCYTES # (AUTO) 0.9 10^3/uL (0.0-1.0); MONOCYTES % (AUTO) 8.2 %; NEUTROPHILS # (AUTO) 8.6 10^3/uL (1.5-6.6); PLT - PLATELET COUNT 439 10^3/uL (130-450); RED BLOOD COUNT 4.95 10^6/uL (4.20-5.40); RED CELL DISTRIBUTION WIDTH 12.8 % (12.0-15.0); WHITE BLOOD COUNT 11.4 x10^3/uL (4.8-10.8)
[2021-03-05] MEDS ORDERED: BUPRENORPHINE 0.3 MG/ML VIAL IVP ONE (07:30)
[2021-03-05] MEDS ORDERED: DEXAMETHASONE 10 MG/ML VIAL IVP STA (07:31)
[2021-03-05 07:33] LABS: ALBUMIN 3.7 g/dL (3.2-5.5); BILIRUBIN,TOTAL 0.5 mg/dL (0.2-1.0); CREATININE 0.7 mg/dL (0.4-1.0); POTASSIUM 3.2 mmol/L (3.5-5.0); TOTAL PROTEIN 7.4 g/dL (6.7-8.2)
--- NOTE | 2021-03-05 07:35 | ED Physician Documentation ---
History of Present Illness - Stated complaint Stated Complaint: ABD PX - Chief complaint Chief Complaint: Abd Pain - History obtained from History obtained from: Patient - History of Present Illness Timing: Today Pain level max: 0 Pain level now: 0 - Additonal information Additional information: 45-year-old female who states that she has a history of Crohn's disease. She states she is not on any medications for this at home other than methadone. She states she has not seen a tire trimmer hand in many years. She states that she has had no fevers. States started having vomiting and diarrhea yesterday. She states that she cannot take any medications for Crohn's because "they gave me cervical cancer". She also states that she normally does not take prednisone because it can cause muscle weakness in her. She states that today she has been unable to keep down her methadone so called EMS to bring her to the emergency department. Review of Systems Constitutional: denies: Fever, Chills Throat: denies: Sore throat GI: reports: Abdominal Pain (crampy, diffuse), Vomiting, Diarrhea. 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: Other : None HEENT: None Psych: None Musculoskeletal: None Derm: None - Past Surgical History Past Surgical History: Yes General: Appendectomy, Bowel surgery, Hiatal hernia repair - Present Medications Home Medications: Ambulatory Orders Medication Instructions Recorded Confirmed Docusate Sodium 100 mg PO DAILY #30 capsule 08/06/18 Hydrocortisone Acetate [Anucort-Hc] 25 mg RC DAILY #5 supp.rect 08/06/18 Ondansetron Odt [Zofran] 4 mg TL Q6H PRN #20 tablet 08/06/18 Promethazine [Phenergan] 25 mg PO Q6H PRN #20 tab 08/06/18 dexAMETHasone [Decadron] 4 mg PO DAILY #5 tablet 08/06/18 HYDROmorphone [Dilaudid] 2 - 4 mg PO Q6H PRN #20 tablet 08/09/18 dexAMETHasone [Decadron] 4 mg PO DAILY #5 tablet 08/09/18 oxyCODONE [Roxicodone] 10 mg PO Q6H PRN #30 tablet 10/05/18 Dicyclomine HCl 20 mg PO BID PRN #20 tablet 03/05/21 Ondansetron Odt [Zofran] 4 mg TL Q6H PRN #10 tablet 03/05/21 - Allergies Allergies/Adverse Reactions: Allergies Allergy/AdvReac Type Severity Reaction Status Date / Time acetaminophen [From Vicodin] Allergy Rash Verified 03/05/21 06:44 codeine Allergy Rash Verified 03/05/21 06:44 hydrocodone [From Vicodin] Allergy Rash Verified 03/05/21 06:44 Penicillins Allergy Rash Verified 03/05/21 06:44 - Social History Does the pt smoke?: Yes Smoking Status: Current every day smoker Does the pt drink ETOH?: No Does the pt have substance abuse?: No - Immunizations Immunizations are current?: Yes - POLST Patient has POLST: No PD ED PE NORMAL - Vitals Vital signs reviewed: Yes - General General: Alert and oriented X 3, No acute distress - HEENT HEENT: Moist mucous membranes - Neck Neck: Supple, no meningeal sign - Cardiac Cardiac: RRR - Respiratory Respiratory: No respiratory distress, Clear bilaterally - Abdomen Abdomen: Soft, Non tender, Non distended - Back Back: No CVA TTP - Derm Derm: Warm and dry, No rash - Neuro Neuro: Alert and oriented X 3 - Psych Psych: Normal mood, Normal affect Results - Vitals Vitals: Vital Signs - 24 hr 03/05/21 03/05/21 03/05/21 06:45 07:33 09:00 Temperature 37.2 C Heart Rate 106 H 94 92 Respiratory 20 16 16 Rate Blood Pressure 141/72 H 122/84 H 116/79 O2 Saturation 97 96 95 03/05/21 03/05/21 11:00 13:00 Temperature Heart Rate 87 82 Respiratory 14 14 Rate Blood Pressure 107/72 114/76 O2 Saturation 96 99 Oxygen O2 Source Room air - Labs Labs: Laboratory Tests 03/05/21 03/05/21 06:52 06:52 WBC 11.4 H RBC 4.95 Hgb 13.9 Hct 42.0 MCV 84.8 MCH 28.1 MCHC 33.1 RDW 12.8 Plt Count 439 MPV 9.5 Neut # (Auto) 8.6 H Lymph # (Auto) 1.7 [place] # (Auto) 0.9 Eos # (Auto) 0.1 Baso # (Auto) 0.1 Absolute Nucleated RBC 0.00 Nucleated RBC % 0.0 Sodium 138 Potassium 3.2 L Chloride 101 Carbon Dioxide 25 Anion Gap 12.0 BUN 16 Creatinine 0.7 Estimated GFR (MDRD) 90 Glucose 179 H Calcium 9.0 Total Bilirubin 0.5 AST 18 ALT 16 Alkaline Phosphatase 76 Total Protein 7.4 Albumin 3.7 Globulin 3.7 Albumin/Globulin Ratio 1.0 Lipase 32 PD MEDICAL DECISION MAKING - ED course Complexity details: reviewed results, re-evaluated patient, considered differential, d/w patient ED course: 45-year-old female states she feels like she is having a Crohn's exacerbation. She does not use any medications for Crohn's and has not seen a tire trimmer hand for several years. She appears to be in narcotic withdrawal from not being able to take her methadone. Was given a dose of buprenorphine and symptoms seem to resolve. She slept for several hours in the emergency department. Ate and drank without any difficulty. No vomiting here. Ambulating without difficulty. No significant lab abnormalities. No indication for imaging. We will have her follow-up with her doctor for further care. Patient counseled regarding signs and symptoms for which I believe and urgent re-evaluation would be necessary. Patient with good understanding of and agreement to plan and is comfortable going home at this time This document was made in part using voice recognition software. While efforts are made to proofread this document, sound alike and grammatical errors may occur. Departure - Departure Disposition: 01 Home, Self Care Clinical Impression: Abdominal pain Qualifiers: Abdominal location: generalized Qualified Code(s): R10.84 - Generalized abdominal pain Vomiting Qualifiers: Vomiting type: unspecified Nausea presence: with nausea Qualified Code(s): R11.2 - Nausea with vomiting, unspecified Condition: Good Instructions: ED Nausea Vomiting Follow-Up: your,doctor in 1 week [Other] Prescriptions: Dicyclomine HCl 20 mg PO BID PRN #20 tablet PRN Reason: Abdominal Pain Ondansetron Odt [Zofran] 4 mg TL Q6H PRN #10 tablet PRN Reason: Nausea / Vomiting Comments: Follow up with your doctor for further care. Your prescriptions were sent to [facility] in [place]. Discharge Date/Time: 03/05/21 13:36
[2021-03-05] MEDS ORDERED: DROPERIDOL 5 MG/2 ML VIAL IVP STA (08:36)
[2021-03-05 13:16] VITALS: BP 114/76
[2021-03-05] MEDS ORDERED: HYOSCYAMINE SL 0.125 MG TABLET SL STA (13:17)
== END 2021-03-05 13:36 | disposition home or self-care (01) ==
LOC: EDUNIT# → ED 06:40
DX: R10.84 Generalized abdominal pain (principal); R11.2 Nausea with vomiting, unspecified; K50.90 Crohn's disease, unspecified, without complications; F17.200 Nicotine dependence, unspecified, uncomplicated; Z79.891 Long term (current) use of opiate analgesic
CPT/HCPCS: 36415; 80053; 83690; 85025; 96374; 96375; 99283; 99285; A9270; J0592

== ENCOUNTER 2021-03-18 12:13 | Outpatient (CLI) | payer SELFPAY | END 2021-03-18 12:14 | disposition critical access hospital (66) | LOC: EMS 12:13 | DX: R11.2 Nausea with vomiting, unspecified (principal); R19.5 Other fecal abnormalities | CPT/HCPCS: A0425; A0429 ==

== ENCOUNTER 2021-03-18 12:58 | Emergency (ER) | payer SELFPAY ==
[~2021-03-18 12:58] MED LIST: ONDANSETRON 4 MG/2 ML VIAL IVP STA; SODIUM CHLORIDE 0.9% 1,000 ML IV STA
--- NOTE | 2021-03-18 13:03 | ED Physician Documentation ---
History of Present Illness - Stated complaint Stated Complaint: ABD PX - Chief complaint Chief Complaint: Abd Pain - Additonal information Additional information: 45-year-old female comes to the emergency department for evaluation of nausea v omiting and diarrhea. She reports a history of Crohn's disease but has not had any suppressive medications for many years. She takes methadone and oxycodone as the only management for her symptoms. Last night around midnight she began having uncontrolled vomiting and diarrhea. Reports some of the diarrhea as bloody. She is not vaccinated for COVID-19. Has not seen a primary care physician for many years. She also reports that she was diagnosed with uterine and cervical cancer a number of years ago but has not followed up on that. She denies any recent weight loss. Review of Systems Constitutional: denies: Fever, Chills Eyes: reports: Reviewed and negative Ears: reports: Reviewed and negative Nose: reports: Reviewed and negative Throat: reports: Reviewed and negative Cardiac: reports: Reviewed and negative Respiratory: reports: Reviewed and negative GI: reports: Nausea, Vomiting, Diarrhea. 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 HEENT: None Psych: None Musculoskeletal: None Derm: None - Past Surgical History Past Surgical History: Yes General: Appendectomy, Bowel surgery, Hiatal hernia repair - Present Medications Home Medications: Ambulatory Orders Medication Instructions Recorded Confirmed Docusate Sodium 100 mg PO DAILY #30 capsule 08/06/18 Hydrocortisone Acetate [Anucort-Hc] 25 mg RC DAILY #5 supp.rect 08/06/18 Ondansetron Odt [Zofran] 4 mg TL Q6H PRN #20 tablet 08/06/18 Promethazine [Phenergan] 25 mg PO Q6H PRN #20 tab 08/06/18 dexAMETHasone [Decadron] 4 mg PO DAILY #5 tablet 08/06/18 HYDROmorphone [Dilaudid] 2 - 4 mg PO Q6H PRN #20 tablet 08/09/18 dexAMETHasone [Decadron] 4 mg PO DAILY #5 tablet 08/09/18 oxyCODONE [Roxicodone] 10 mg PO Q6H PRN #30 tablet 10/05/18 Dicyclomine HCl 20 mg PO BID PRN #20 tablet 03/05/21 Ondansetron Odt [Zofran] 4 mg TL Q6H PRN #10 tablet 03/05/21 Ondansetron Odt [Zofran] 4 mg TL Q6H PRN #10 tablet 03/18/21 - Allergies Allergies/Adverse Reactions: Allergies Allergy/AdvReac Type Severity Reaction Status Date / Time acetaminophen [From Vicodin] Allergy Rash Verified 03/18/21 12:55 codeine Allergy Rash Verified 03/18/21 12:55 hydrocodone [From Vicodin] Allergy Rash Verified 03/18/21 12:55 Penicillins Allergy Rash Verified 03/18/21 12:55 - Social History Does the pt smoke?: Yes Smoking Status: Current every day smoker Does the pt drink ETOH?: No Does the pt have substance abuse?: No - Immunizations Immunizations are current?: Yes - POLST Patient has POLST: No PD ED PE EXPANDED - General General: Alert, No acute distress, Well developed/nourished - Cardiac Cardiac: Regular Rate, Radial strong equal. No: Murmur Present - Respiratory Respiratory: Clear to ausultation oralia. No: Distress, Labored - Abdomen Abdomen: Normal Bowel sounds. No: Tender to palpation, Rebound, Guarding - Extremities Extremities: Normal. No: Deformity, Tenderness - Neuro Neuro: Alert and Oriented X 3, CNII-XII intact. No: Confused, Disoriented - GCS Eye Opening: Spontaneous Motor: Obeys Commands Verbal: Oriented Total: 15 Results - Vitals Vitals: Vital Signs - 24 hr 03/18/21 03/18/21 03/18/21 12:53 13:21 14:26 Temperature 36.6 C Heart Rate 83 77 80 Respiratory 20 13 Rate Blood Pressure 140/90 H 143/93 H O2 Saturation 96 98 97 Oxygen O2 Source Room air - Labs Labs: Laboratory Tests 03/18/21 03/18/21 03/18/21 13:18 13:18 13:18 WBC 9.8 RBC 4.92 Hgb 13.9 Hct 41.5 MCV 84.3 MCH 28.3 MCHC 33.5 RDW 12.8 Plt Count 359 MPV 9.6 Neut # (Auto) 6.8 H Lymph # (Auto) 2.1 [place] # (Auto) 0.7 Eos # (Auto) 0.1 Baso # (Auto) 0.1 Absolute Nucleated RBC 0.00 Nucleated RBC % 0.0 Sodium 141 Potassium 3.4 L Chloride 104 Carbon Dioxide 27 Anion Gap 10.0 BUN 12 Creatinine 0.6 Estimated GFR (MDRD) 108 Glucose 120 H Lactic Acid 0.9 Calcium 8.9 Total Bilirubin 0.6 AST 23 ALT 22 Alkaline Phosphatase 62 Total Protein 7.1 Albumin 3.8 Globulin 3.3 Albumin/Globulin Ratio 1.2 Lipase 25 PD MEDICAL DECISION MAKING - ED course Complexity details: reviewed results, re-evaluated patient, considered differential, d/w patient ED course: This is a 45-year-old female who comes the emergency department with about 12 hours of vomiting and diarrhea. She reports that it is a Crohn's flare. However she is taking no medications for Crohn's disorder other than oxycodone and methadone. She has not seen a paid search manager for several years. She also reports that in 2019 she was diagnosed with endometrial cancer but has not seen a primary care doctor in follow-up of this nor has she chosen to follow-up with oncology. Here in the emergency department we did obtain screening labs which reassuringly showed no worrisome abnormalities. No leukocytosis or electrolyte abnormalities requiring treatment. She had a very nontender abdominal exam. She was given a liter of IV fluids, some Zofran and Dilaudid which markedly improved her nausea and vomiting and as such she was able to tolerate clear liquids. Given lack of abdominal pain and unremarkable labs no indication for imaging today. I have discussed with the patient that her history of Crohn's disorder as well as her reported history of endometrial cancer should be evaluated by primary care doctor and further evaluation may be warranted through hematology oncology and/or gynecology. Patient reports frustration with accessing medical care. I did asked social work to see her to help give her the resources for this. Emergent return precautions were discussed for worsening symptoms. Departure - Departure Disposition: 01 Home, Self Care Clinical Impression: Nausea vomiting and diarrhea Condition: Stable Record reviewed to determine appropriate education?: Yes Prescriptions: Ondansetron Odt [Zofran] 4 mg TL Q6H PRN #10 tablet PRN Reason: Nausea / Vomiting Comments: Dione you were seen in the emergency department today for nausea vomiting and diarrhea. Your screening labs were all essentially normal which is very reassuring. We did give you some IV fluids as well as pain medicine and nausea medicine with good control of your symptoms. You do report a history of Crohn's disorder but you do not appear to be on any maintenance or suppressive medications. You also report that in 2019 you were diagnosed with endometrial cancer. It is very important that you follow-up with establishing with a primary care pr ovider. You likely need to be rereferred to a paid search manager and/or a build manager. If you find that you have fevers higher than 103, have suddenly severe abdominal pain, or your symptoms are not controlled at home with Zofran then please return immediately to the ER. Your prescription for Zofran has been sent to the [facility] in [place]. Discharge Date/Time: 03/18/21 14:27
[2021-03-18] MEDS ORDERED: HYDROmorphone 1 MG/ML CARPUJECT IVP STA (13:05)
[2021-03-18 13:23] VITALS: BP 143/93
[2021-03-18 13:25] LABS: BASOPHILS # (AUTO) 0.1 10^3/uL (0.0-0.1); BASOPHILS % (AUTO) 0.9 %; EOSINOPHILS # (AUTO) 0.1 10^3/uL (0.0-0.7); EOSINOPHILS % (AUTO) 1.1 %; HCT - HEMATOCRIT 41.5 % (37.0-47.0); HGB - HEMOGLOBIN 13.9 g/dL (12.0-16.0); LYMPHOCYTES # (AUTO) 2.1 10^3/uL (1.5-3.5); LYMPHOCYTES % (AUTO) 20.8 %; MEAN CORPUSCULAR HEMOGLOBIN 28.3 pg (27.0-31.0); MEAN CORPUSCULAR HGB CONC 33.5 g/dL (32.0-36.0); MEAN CORPUSCULAR VOLUME 84.3 fL (81.0-99.0); MEAN PLATELET VOLUME 9.6 fL (7.9-10.8); MONOCYTES # (AUTO) 0.7 10^3/uL (0.0-1.0); MONOCYTES % (AUTO) 7.4 %; NEUTROPHILS # (AUTO) 6.8 10^3/uL (1.5-6.6); NEUTROPHILS % (AUTO) 69.5 %; PLT - PLATELET COUNT 359 10^3/uL (130-450); RED BLOOD COUNT 4.92 10^6/uL (4.20-5.40); RED CELL DISTRIBUTION WIDTH 12.8 % (12.0-15.0); WHITE BLOOD COUNT 9.8 x10^3/uL (4.8-10.8)
[2021-03-18 13:40] LABS: ALBUMIN 3.8 g/dL (3.2-5.5); ALBUMIN/GLOBULIN RATIO 1.2 (1.0-2.2); BILIRUBIN,TOTAL 0.6 mg/dL (0.2-1.0); CALCIUM 8.9 mg/dL (8.5-10.3); CREATININE 0.6 mg/dL (0.4-1.0); POTASSIUM 3.4 mmol/L (3.5-5.0); TOTAL PROTEIN 7.1 g/dL (6.7-8.2)
== END 2021-03-18 14:27 | disposition home or self-care (01) ==
LOC: ED 12:58
DX: R11.2 Nausea with vomiting, unspecified (principal); R19.7 Diarrhea, unspecified; F17.200 Nicotine dependence, unspecified, uncomplicated
CPT/HCPCS: 36415; 80053; 83605; 83690; 85025; 96374; 99283; J1170